=== PATIENT | male | born 1970 | race Caucasian/White ===

== ENCOUNTER 2017-02-20 06:36 | Inpatient (IN) | payer BC ==
[~2017-02-20 06:36] MED LIST: Bisacodyl 5 MG Tab PO PRN; Cyclobenzaprine 10 MG Tab PO PRN; Ketorolac 15 MG/ML SDV IVPUSH PRN; Lactated Ringers 1,000 ML IV SCH; Lidocaine 1%/Sod Bicarbonate in NS 8.4% 1 ML Syringe IV PRN; Magnesium Hydroxide 400 MG/5 ML Susp 30 ML Cup PO PRN; Morphine 2 MG/ML Syringe IVPUSH PRN; Morphine 8 MG, EPINEPHrine 0.3 MG, Cefuroxime 750 MG, Ketorolac 30 MG, Sodium Chloride ... ONE; Naloxone 0.4 MG/ML SDV IVPUSH PRN; Ondansetron 4 MG/2 ML SDV IVPUSH PRN; Sennosides 8.6 MG Tab PO PRN; Sodium Chloride 0.9% 10 ML Syringe FLUSH PRN; diphenhydrAMINE 50 MG/ML SDV IVPUSH PRN
[2017-02-20] MEDS ORDERED: Bupivacaine 0.25% 30 ML SDV ONE (06:54)
[2017-02-20] MEDS ORDERED: Iodine/Sodium Iodide 2% Tincture 30 ML Bottle ONE (06:54)
[2017-02-20] MEDS ORDERED: ceFAZolin 1 GM Vial ONE ×2 (06:54→07:23)
[2017-02-20] MEDS ORDERED: Vancomycin 1 GM SDV ONE (06:54)
[2017-02-20] MEDS ORDERED: Ondansetron 4 MG/2 ML SDV ONE (07:23)
[2017-02-20] MEDS ORDERED: Midazolam 1 MG/ML 2 ML SDV ONE ×2 (07:24→08:55)
[2017-02-20] MEDS ORDERED: fentaNYL 100 MCG/2 ML SDV ONE (07:24)
[2017-02-20] MEDS ORDERED: Propofol 200 MG/20 ML SDV ONE ×5 (07:24→10:37)
--- NOTE | 2017-02-20 07:41 | PCM.PREANE ---
Preanesthetic Assessment - Anesthesia/Transfusion/Family Hx Anesthesia History: Prior Anesthesia Without Reaction Family History of Anesthesia Reaction: No Transfusion History: Prior Transfusion Without Reaction - Review of Systems General: No Symptoms Pulmonary: Other (seasonal allergies, uses inhaler during that time) Cardiovascular: Other (HTN) Gastrointestinal: Other (S/p gastric bypass with complications) Neurological: Other (neruopathy in legs from knees down) Other: Reports: None - Physical Assessment NPO Status Date: 02/19/17 NPO Status Time: 21:00 Pulse: 64 O2 Sat by Pulse Oximetry: 96 Respiratory Rate: 16 Blood Pressure: 128/95 Temperature: 36.4 C Weight: 144 kg ASA Class: 2 Mental Status: Alert & Oriented x3 Airway Class: Mallampati = 2 Dentition: Reports: Normal Dentition Thyro-Mental Finger Breadths: 3 Mouth Opening Finger Breadths: 3 ROM/Head Extension: Full Lungs: Clear to Auscultation, Normal Respiratory Effort Cardiovascular: Regular Rate, Regular Rhythm, No Murmurs - Lab Values: Laboratory Last Values MRSA (PCR) Negative 01/31/17 12:20 - Allergies Allergies/Adverse Reactions: Allergies Allergy/AdvReac Type Severity Reaction Status Date / Time Penicillins Allergy Hives Verified 02/17/17 14:06 piperacillin [From Zosyn] Allergy Rash Verified 02/17/17 14:06 tazobactam [From Zosyn] Allergy Rash Verified 02/17/17 14:06 - Blood Blood Available: No Product(s) Available: None - Anesthesia Plan Pre-Op Medication Ordered: None - Acknowledgements Anesthesia Type Planned: Spinal Pt an Appropriate Candidate for the Planned Anesthesia: Yes Alternatives and Risks of Anesthesia Discussed w Pt/Guardian: Yes Pt/Guardian Understands and Agrees with Anesthesia Plan: Yes PreAnesthesia Questionnaire HEENT History: Reports: None Cardiovascular History: Reports: Hypertension Respiratory History: Reports: Other (See Below) Other Respiratory History: Tracheostomy from complications of gastric bypass, pneumonia Gastrointestinal History: Reports: None Genitourinary History: Reports: None Other Musculoskeletal History: Left knee pain Neurological History: Reports: Neuropathy, Peripheral Psychiatric History: Reports: PTSD, Other (See Below) Other Psychiatric History: Fatigue Endocrine/Metabolic History: Reports: Obesity/BMI 30+ Hematologic History: Reports: None Immunologic History: Reports: None Oncologic (Cancer) History: Reports: None Dermatologic History: Reports: None - Infectious Disease History Infectious Disease History: Reports: None - Past Surgical History Head Surgeries/Procedures: Reports: None HEENT Surgical History: Reports: None Cardiovascular Surgical History: Reports: None Respiratory Surgical History: Reports: None GI Surgical History: Reports: Other (See Below) Other GI Surgeries/Procedures: Gastric bypass with severe complications (8 years ago) Female Surgical History: Male Surgical History: Reports: None Endocrine Surgical History: Reports: None Neurological Surgical History: Reports: None Musculoskeletal Surgical History: Reports: None Oncologic Surgical History: Reports: None Dermatological Surgical History: Reports: None - SUBSTANCE USE Smoking Status *Q: Light Tobacco Smoker Tobacco Use Within Last Twelve Months: Snuff/Dip Second Hand Smoke Exposure: No Recreational Drug Use History: No - HOME MEDS Home Medications: Home Meds Albuterol [Ventolin HFA] 1 - 2 puff INH Q4H PRN 02/17/17 [History] Cyanocobalamin/FA/Pyridoxine [Folbic Tablet] 1 tab PO DAILY 02/17/17 [History] DULoxetine [Cymbalta] 60 mg PO DAILY 02/17/17 [History] Gabapentin [Neurontin] 600 mg PO TID 02/17/17 [History] Lansoprazole [Prevacid] 15 mg PO DAILY PRN 02/17/17 [History] Multivitamin [Daily Multiple Vitamin] 1 tab PO DAILY 02/17/17 [History] - CURRENT (IN HOUSE) MEDS Current Meds: Current Medications Bisacodyl (Dulcolax) 5 mg PO DAILY PRN PRN Reason: Constipation Cyclobenzaprine HCl (Flexeril) 10 mg PO TID PRN PRN Reason: Spasms Diphenhydramine HCl (Benadryl) 25 mg IVPUSH Q4H PRN PRN Reason: Nausea Docusate Sodium (Colace) 100 mg PO BID ISAAC Lactated Ringer's (Ringers, Lactated) 1,000 mls @ 125 mls/hr IV ASDIRECTED ISAAC Stop: 02/20/17 18:00 Ketorolac Tromethamine (Toradol) 15 mg IVPUSH Q6H PRN PRN Reason: Pain Lidocaine/Sodium Bicarbonate (Buffered Lidocaine 1% In Ns 8.4%) 0.25 ml IV ONETIME PRN PRN Reason: Prior to IV Start Stop: 02/20/17 18:00 Magnesium Hydroxide (Milk Of Magnesia) 30 ml PO BID PRN PRN Reason: Constipation Morphine Sulfate (Morphine) 2 mg IVPUSH Q2H PRN PRN Reason: Breakthrough Pain Naloxone HCl (Narcan) 0.1 mg IVPUSH Q5M PRN PRN Reason: Oversedation Ondansetron HCl (Zofran) 4 mg IVPUSH Q6H PRN PRN Reason: Nausea/Vomiting Oxycodone/Acetaminophen (Percocet 325-5 Mg) 1 - 2 tab PO Q4H PRN PRN Reason: Pain Rivaroxaban (Xarelto) 10 mg PO DAILY ISAAC Senna (Senna) 8.6 mg PO BID PRN PRN Reason: Constipation Sodium Chloride (Saline Flush) 10 ml FLUSH ASDIRECTED PRN PRN Reason: Keep Vein Open Discontinued Medications Bupivacaine HCl (Marcaine 0.25%) Confirm Administered Dose 30 ml .ROUTE .STK- MED ONE Stop: 02/20/17 06:55 Cefazolin Sodium (Ancef) Confirm Administered Dose 2 gm .ROUTE .STK-MED ONE Stop: 02/20/17 06:55 Cefazolin Sodium (Ancef) Confirm Administered Dose 3 gm .ROUTE .STK-MED ONE Stop: 02/20/17 07:24 Morphine Sulfate 8 mg/Epinephrine HCl 0.3 mg/Cefuroxime Sodium 750 mg/Ketorolac Tromethamine 30 mg/Sodium Chloride 27.9 ml 0 mg .XX ONETIME ONE Stop: 02/20/17 06:25 Fentanyl (Sublimaze) Confirm Administered Dose 100 mcg .ROUTE .STK-MED ONE Stop: 02/20/17 07:25 Iodine (Iodine 2% Mild Tincture) Confirm Administered Dose 30 ml .ROUTE .STK- MED ONE Stop: 02/20/17 06:55 Midazolam HCl (Versed 1 Mg/Ml) Confirm Administered Dose 2 mg .ROUTE .STK-MED ONE Stop: 02/20/17 07:25 Ondansetron HCl (Zofran) Confirm Administered Dose 4 mg .ROUTE .STK-MED ONE Stop: 02/20/17 07:24 Propofol (Diprivan 20 Ml) Confirm Administered Dose 600 mg .ROUTE .STK-MED ONE Stop: 02/20/17 07:25 Tranexamic Acid (Cyklokapron) Confirm Administered Dose 1,000 mg .ROUTE .STK- MED ONE Stop: 02/20/17 06:55 Vancomycin HCl (Vancomycin) Confirm Administered Dose 1 gm .ROUTE .STK-MED ONE Stop: 02/20/17 06:55
[2017-02-20] MEDS ORDERED: Morphine PF 1 MG/ML Amp ONE (07:48)
[2017-02-20] MEDS ORDERED: FLU Vacc QS 2017-18 (6mos UP)/PF 60 MCG/0.5 ML Syringe IM ONE (08:44)
[2017-02-20] MEDS ORDERED: fentaNYL 250 MCG/5 ML SDV ONE (08:54)
[2017-02-20] MEDS ORDERED: Ondansetron 4 MG/2 ML SDV IVPUSH PRN (09:25)
[2017-02-20] MEDS ORDERED: fentaNYL 100 MCG/2 ML SDV IVPUSH PRN (09:25)
[2017-02-20] MEDS ORDERED: diphenhydrAMINE 50 MG/ML SDV IVPUSH PRN (09:25)
[2017-02-20] MEDS ORDERED: HYDROmorphone 0.5 MG/0.5 ML Syringe IVPUSH PRN (09:25)
[2017-02-20] MEDS ORDERED: Lactated Ringers 1,000 ML ONE ×2 (10:24→10:50)
[2017-02-20] MEDS ORDERED: Dexamethasone 4 MG/ML 5 ML MDV ONE (10:25)
--- NOTE | 2017-02-20 11:05 | PCM.POSTAN ---
POST ANESTHESIA ASSESSMENT - MENTAL STATUS Mental Status: Alert, Oriented - VITAL SIGNS Pulse Rate: 80 SaO2: 95 Resp Rate: 16 Blood Pressure: 126/90 Temperature: 97.2 C - RESPIRATORY Respiratory Status: Respiratory Rate WNL, Airway Patent, O2 Saturation Stable, Supplemental Oxygen - CARDIOVASCULAR CV Status: Pulse Rate WNL, Blood Pressure Stable - GASTROINTESTINAL GI Status: No Symptoms - PAIN Pain Score: 0 - POST OP HYDRATION Hydration Status: Adequate & Stable
--- NOTE | 2017-02-20 11:44 | CR ---
Left knee: AP and lateral views of the left knee were obtained utilizing portable technique. Left knee prosthesis is seen. Components are aligned. Soft tissue air is noted from the surgical procedure. Underlying bony structures are intact. Impression: 1. Satisfactory radiographic appearance of recently placed knee prosthesis. Diagnostic code #2
[2017-02-20] MEDS ORDERED: Albuterol 6.7 GM Inhaler INH PRN (11:46)
[2017-02-20] MEDS ORDERED: Pantoprazole 40 MG Tab.CR PO PRN (11:46)
[2017-02-20] MEDS: ceFAZolin 1 GM in Premix Bag 1 BAG IV SCH (16:39)
[2017-02-20] MEDS: ceFAZolin 2 GM in Premix Bag 1 BAG IV SCH (17:09)
--- NOTE | 2017-02-20 18:42 | PCM.CONS ---
H&P History of Present Illness - General Date of Service: 02/20/17 Admit Problem/Dx: Admission Diagnosis/Problem Admission Diagnosis/Problem Osteoarthritis of knee Source of Information: Patient, Old Records History Limitations: Reports: No Limitations - History of Present Illness Initial Comments - Free Text/Narative: Cole is a 46-year-old male seen this afternoon, status post left TKA with Dr. Weir. Thus far he is doing very well. He states he has minimal to no complaints of knee pain. He has been up ambulatory twice once around the entire loop of the hallways. Did very well without according to his report. Streeter is in place draining clear yellow urine. He has no complaints of nausea and is tolerating by mouth well. Past medical history significant for gastric bypass around 8 years ago with complications requiring him to have a stay at [facility] for what is reported at 8 months he went into renal failure and also had pulmonary emboli at that time and was intubated with tracheostomy for many months, hypertension, seasonal allergies, peripheral neuropathy from the knees down bilaterally, reports "light" smoker. Hospitalist service is consulted for postoperative medical management. Patient is full CODE STATUS. - Related Data Allergies/Adverse Reactions: Allergies Allergy/AdvReac Type Severity Reaction Status Date / Time Penicillins Allergy Hives Verified 02/17/17 14:06 piperacillin [From Zosyn] Allergy Rash Verified 02/17/17 14:06 tazobactam [From Zosyn] Allergy Rash Verified 02/17/17 14:06 Home Medications: Home Meds Albuterol [Ventolin HFA] 1 - 2 puff INH Q4H PRN 02/17/17 [History] Cyanocobalamin/FA/Pyridoxine [Folbic Tablet] 1 tab PO DAILY 02/17/17 [History] DULoxetine [Cymbalta] 60 mg PO DAILY 02/17/17 [History] Gabapentin [Neurontin] 600 mg PO TID 02/17/17 [History] Lansoprazole [Prevacid] 15 mg PO DAILY PRN 02/17/17 [History] Multivitamin [Daily Multiple Vitamin] 1 tab PO DAILY 02/17/17 [History] Past Medical History HEENT History: Reports: Other (See Below) Other HEENT History: glasses for reading Cardiovascular History: Reports: Hypertension Respiratory History: Reports: Asthma, Other (See Below) Other Respiratory History: Tracheostomy from complications of gastric bypass, pneumonia Gastrointestinal History: Reports: None, Other (See Below) Other Gastrointestinal History: slower bowels Genitourinary History: Reports: None Musculoskeletal History: Reports: None Other Musculoskeletal History: Left knee pain Neurological History: Reports: Neuropathy, Peripheral Psychiatric History: Reports: Addiction, PTSD, Other (See Below) Other Psychiatric History: recovering alcoholic Endocrine/Metabolic History: Reports: Obesity/BMI 30+ Hematologic History: Reports: Blood Transfusion(s) Immunologic History: Reports: None Oncologic (Cancer) History: Reports: None Dermatologic History: Reports: None - Infectious Disease History Infectious Disease History: Reports: None - Past Surgical History Head Surgeries/Procedures: Reports: None HEENT Surgical History: Reports: None Cardiovascular Surgical History: Reports: None Respiratory Surgical History: Reports: None GI Surgical History: Reports: Other (See Below) Other GI Surgeries/Procedures: Gastric bypass with severe complications (8 years ago) Male Surgical History: Reports: None Endocrine Surgical History: Reports: None Neurological Surgical History: Reports: None Musculoskeletal Surgical History: Reports: None Oncologic Surgical History: Reports: None Dermatological Surgical History: Reports: None Social & Family History - Family History Oncologic: Reports: Lymphoma - Tobacco Use Smoking Status *Q: Light Tobacco Smoker Years of Tobacco use: 10 Packs/Tins Daily: 1 Tobacco Use Comment: 1 can of chew lasts several weeks Second Hand Smoke Exposure: No - Caffeine Use Caffeine Use: Reports: Coffee, Soda - Recreational Drug Use Recreational Drug Use: No Drug Use in Last 12 Months: No H&P Review of Systems - Review of Systems: Review Of Systems: See Below General: Reports: No Symptoms HEENT: Reports: No Symptoms Pulmonary: Reports: No Symptoms Cardiovascular: Reports: No Symptoms Gastrointestinal: Reports: No Symptoms Genitourinary: Reports: No Symptoms, Other (streeter cath) Musculoskeletal: Reports: Leg Pain (minimal to none) Psychiatric: Reports: No Symptoms Neurological: Reports: No Symptoms Exam - Exam Exam: See Below - Vital Signs Vital Signs: Last Vital Signs Temp 97.2 F 02/20/17 12:28 Pulse 74 02/20/17 15:02 Resp 16 02/20/17 17:44 BP 122/75 02/20/17 15:02 Pulse Ox 96 02/20/17 17:44 Weight: 318 lb - Exam Quality Assessment: Supplemental Oxygen (1L/NC at time of exam), Urinary Catheter (clear yellow urine) General: Alert, Oriented, Cooperative HEENT: Conjunctiva Clear, Mucosa Moist & [place], Pupils Equal, PERRLA Neck: Supple Lungs: Clear to Auscultation, Normal Respiratory Effort Cardiovascular: Regular Rate, Regular Rhythm, Normal S1, Normal S2 GI/Abdominal Exam: Normal Bowel Sounds, Soft, Non-Tender (Male) Exam: Deferred Rectal (Males) Exam: Deferred Extremities: Normal Capillary Refill, Other (ice to lt knee, kevyn wrap present to lt leg) Peripheral Pulses: 2+: Dorsalis Pedis (L), Dorsalis Pedis (R) Skin: Warm, Dry Neuro Extensive - Mental Status: Alert, Oriented x3, Normal Mood/Affect, Normal Cognition, Memory Intact Psychiatric: Alert, Normal Affect, Normal Mood - Patient Data Lab Results Last 24 hrs: Laboratory Results - last 24 hr 02/20/17 Range/Units 07:27 Sodium 143 (136-145) mEq/L Potassium 4.1 (3.5-5.1) mEq/L Chloride 106 (98-107) mEq/L Carbon Dioxide 32 (21-32) mEq/L Anion Gap 9.1 (5-15) BUN 12 (7-18) mg/dL Creatinine 1.3 (0.7-1.3) mg/dL Est Cr Clr Drug Dosing 80.79 mL/min Estimated GFR (MDRD) 59 (>60) mL/min BUN/Creatinine Ratio 9.2 L (14-18) Glucose 112 H (74-106) mg/dL Calcium 9.2 (8.5-10.1) mg/dL Result Diagrams: 02/20/17 07:27 Consult PN Assessment/Plan POD#: 0 (1) S/P total knee arthroplasty SNOMED Code(s): 2673813001353, 8795324927222 Code(s): Z96.659 - PRESENCE OF UNSPECIFIED ARTIFICIAL KNEE JOINT Priority: High Current Visit: Yes Qualifiers: Laterality: left Qualified Code(s): Z96.652 - Presence of left artificial knee joint (2) Osteoarthritis SNOMED Code(s): 544259105 Code(s): M19.90 - UNSPECIFIED OSTEOARTHRITIS, UNSPECIFIED SITE Priority: High Current Visit: Yes Qualifiers: Osteoarthritis location: knee Osteoarthritis type: primary Laterality: left Qualified Code(s): M17.12 - Unilateral primary osteoarthritis, left knee (3) S/P gastric bypass SNOMED Code(s): 533360710, 053652857, 517781453 Code(s): Z98.84 - BARIATRIC SURGERY STATUS Priority: Medium Current Visit : Yes (4) Hx pulmonary embolism SNOMED Code(s): 351961872 Code(s): Z86.711 - PERSONAL HISTORY OF PULMONARY EMBOLISM Priority: Medium Current Visit: Yes (5) Peripheral neuropathy SNOMED Code(s): 041622866 Code(s): G62.9 - POLYNEUROPATHY, UNSPECIFIED Priority: Medium Current Visit: Yes Qualifiers: Peripheral neuropathy type: polyneuropathy, unspecified Qualified Code(s): G62.9 - Polyneuropathy, unspecified (6) HTN (hypertension) SNOMED Code(s): 05017189 Code(s): I10 - ESSENTIAL (PRIMARY) HYPERTENSION Priority: Medium Current Visit: Yes Qualifiers: Hypertension type: essential hypertension Qualified Code(s): I10 - Essential (primary) hypertension (7) Seasonal allergies SNOMED Code(s): 872915813 Code(s): J30.2 - OTHER SEASONAL ALLERGIC RHINITIS Priority: Medium Current Visit: No Qualifiers: Chronicity: unspecified Allergic rhinitis trigger: unspecified Qualified Code(s): J30.2 - Other seasonal allergic rhinitis (8) Tobacco use SNOMED Code(s): 484876893 Code(s): Z72.0 - TOBACCO USE Priority: Medium Current Visit: Yes Problem List Initiated/Reviewed/Updated: Yes Plan: I/P: S/P total left knee arthroplasty, POD # 0, Dr. Weir - Pain management and DVT prophylax--with Xarelto as patient with history of pulmonary emboli per Orth OT and - PT/OT - RT/IS - Hgb will follow with morning labs - Supplemental oxygen as needed for saturations less than 90%, wean as needed -Vital signs stable at this time. Patient doing very well Chronic conditions: History of gastric bypass with complications, pulmonary emboli, acute renal failure, intubation for many months Hypertension, continue home meds, stable Peripheral neuropathy, continue home meds Tobacco use disorder, cessation education Other: GI Prophylax- continue home PPI CM/SW for DC planning Patient is full Code status.
[2017-02-20] MEDS: Gabapentin 600 MG Tab PO SCH (21:31)
[2017-02-20] MEDS: Acetaminophen/oxyCODONE 325-5 MG Tab PO PRN (21:31)
[2017-02-20] MEDS: Docusate Sodium 100 MG Cap PO SCH (21:31)
[2017-02-21] MEDS: ceFAZolin 2 GM in Premix Bag 1 BAG IV SCH ×2 (01:25→14:02)
[2017-02-21] MEDS: ceFAZolin 1 GM in Premix Bag 1 BAG IV SCH ×2 (01:25→14:01)
[2017-02-21] MEDS ORDERED: Rivaroxaban 10 MG Tab PO SCH (09:00)
[2017-02-21] MEDS ORDERED: DULoxetine 30 MG Cap PO SCH (09:00)
[2017-02-21] MEDS: Acetaminophen/oxyCODONE 325-5 MG Tab PO PRN (12:14)
[2017-02-21] MEDS: Docusate Sodium 100 MG Cap PO SCH (14:02)
[2017-02-21] MEDS: Gabapentin 600 MG Tab PO SCH ×2 (14:02→15:04)
--- NOTE | 2017-02-21 16:38 | PCM.SURGPN ---
- General Info Date of Service: 02/21/17 POD#: 1 Functional Status: Reports: Pain Controlled, Tolerating Diet, Ambulating, Urinating, Incentive Spirometry - Review of Systems Musculoskeletal: Reports: Other (The pt has progressed well with P.T. and O.T.) - Patient Data Vitals - Most Recent: Last Vital Signs Temp 98.1 F 02/21/17 00:26 Pulse 72 02/21/17 00:26 Resp 16 02/21/17 02:00 BP 101/57 L 02/21/17 00:26 Pulse Ox 97 02/21/17 00:26 Weight - Most Recent: 318 lb I&O - Last 24 Hours: Intake & Output 02/20/17 02/21/17 02/21/17 22:59 06:59 14:59 Intake Total 1440 120 Output Total 550 Balance 890 120 Med Orders - Current: Current Medications Albuterol (Proventil Hfa) 0 gm INH Q4H PRN PRN Reason: Shortness of Breath Bisacodyl (Dulcolax) 5 mg PO DAILY PRN PRN Reason: Constipation Cyclobenzaprine HCl (Flexeril) 10 mg PO TID PRN PRN Reason: Spasms Diphenhydramine HCl (Benadryl) 25 mg IVPUSH Q4H PRN PRN Reason: Nausea Docusate Sodium (Colace) 100 mg PO BID COUNT INCLUDES THE [facility] Last Admin: 02/20/17 21:31 Dose: 100 mg Duloxetine HCl (Cymbalta) 60 mg PO DAILY COUNT INCLUDES THE [facility] Gabapentin (Neurontin) 600 mg PO TID COUNT INCLUDES THE [facility] Last Admin: 02/20/17 21:31 Dose: 600 mg Cefazolin Sodium/Dextrose 2 gm (/ Premix) 50 mls @ 100 mls/hr IV Q8H COUNT INCLUDES THE [facility] Stop: 02/21/17 09:29 Last Admin: 02/21/17 01:25 Dose: 100 mls/hr Cefazolin Sodium/Dextrose 1 gm (/ Premix) 50 mls @ 100 mls/hr IV Q8H COUNT INCLUDES THE [facility] Stop: 02/21/17 09:29 Last Admin: 02/21/17 01:25 Dose: 100 mls/hr Ketorolac Tromethamine (Toradol) 15 mg IVPUSH Q6H PRN PRN Reason: Pain Magnesium Hydroxide (Milk Of Magnesia) 30 ml PO BID PRN PRN Reason: Constipation Morphine Sulfate (Morphine) 2 mg IVPUSH Q2H PRN PRN Reason: Breakthrough Pain Last Admin: 02/20/17 10:08 Dose: 2 mg Naloxone HCl (Narcan) 0.1 mg IVPUSH Q5M PRN PRN Reason: Oversedation Ondansetron HCl (Zofran) 4 mg IVPUSH Q6H PRN PRN Reason: Nausea/Vomiting Oxycodone/Acetaminophen (Percocet 325-5 Mg) 1 - 2 tab PO Q4H PRN PRN Reason: Pain Last Admin: 02/21/17 12:14 Dose: 2 tab Pantoprazole Sodium (Protonix) 40 mg PO DAILY PRN PRN Reason: Indigestion Rivaroxaban (Xarelto) 10 mg PO DAILY [facility] Senna (Senna) 8.6 mg PO BID PRN PRN Reason: Constipation Sodium Chloride (Saline Flush) 10 ml FLUSH ASDIRECTED PRN PRN Reason: Keep Vein Open Discontinued Medications Bupivacaine HCl (Marcaine 0.25%) Confirm Administered Dose 30 ml .ROUTE .STK- MED ONE Stop: 02/20/17 06:55 Last Admin: 02/20/17 10:09 Dose: 30 ml Cefazolin Sodium (Ancef) Confirm Administered Dose 2 gm .ROUTE .STK-MED ONE Stop: 02/20/17 06:55 Last Admin: 02/20/17 10:05 Dose: 2 gm Cefazolin Sodium (Ancef) Confirm Administered Dose 3 gm .ROUTE .STK-MED ONE Stop: 02/20/17 07:24 Morphine Sulfate 8 mg/Epinephrine HCl 0.3 mg/Cefuroxime Sodium 750 mg/Ketorolac Tromethamine 30 mg/Sodium Chloride 27.9 ml 0 mg .XX ONETIME ONE Stop: 02/20/17 06:25 Dexamethasone (Dexamethasone) Confirm Administered Dose 20 mg .ROUTE .STK-MED ONE Stop: 02/20/17 10:26 Diphenhydramine HCl (Benadryl) 25 mg IVPUSH Q6H PRN PRN Reason: itching Stop: 02/20/17 18:00 Fentanyl (Sublimaze) Confirm Administered Dose 100 mcg .ROUTE .STK-MED ONE Stop: 02/20/17 07:25 Fentanyl (Sublimaze) Confirm Administered Dose 250 mcg .ROUTE .STK-MED ONE Stop: 02/20/17 08:55 Fentanyl (Sublimaze) 50 mcg IVPUSH Q5M PRN PRN Reason: pain Stop: 02/20/17 18:00 Hydromorphone HCl (Dilaudid) 0.5 mg IVPUSH Q15M PRN PRN Reason: Pain (severe 7-10) Stop: 02/20/17 18:00 Lactated Ringer's (Ringers, Lactated) 1,000 mls @ 125 mls/hr IV ASDIRECTED [facility] Stop: 02/20/17 18:00 Last Admin: 02/20/17 07:35 Dose: 125 mls/hr Lactated Ringer's (Ringers, Lactated) Confirm Administered Dose 1,000 mls @ as directed .ROUTE .STK-MED ONE Stop: 02/20/17 10:25 Lactated Ringer's (Ringers, Lactated) Confirm Administered Dose 1,000 mls @ as directed .ROUTE .STK-MED ONE Stop: 02/20/17 10:51 Influenza Virus Vaccine (Flulaval Quad [id number]) 60 mcg IM .ONCE ONE Stop: 02/20/17 08:45 Last Admin: 02/20/17 13:45 Dose: Not Given Iodine (Iodine 2% Mild Tincture) Confirm Administered Dose 30 ml .ROUTE .STK- MED ONE Stop: 02/20/17 06:55 Last Admin: 02/20/17 10:00 Dose: 18 ml Lidocaine/Sodium Bicarbonate (Buffered Lidocaine 1% In Ns 8.4%) 0.25 ml IV ONETIME PRN PRN Reason: Prior to IV Start Stop: 02/20/17 18:00 Last Admin: 02/20/17 07:34 Dose: 0.25 ml Midazolam HCl (Versed 1 Mg/Ml) Confirm Administered Dose 2 mg .ROUTE .STK-MED ONE Stop: 02/20/17 07:25 Midazolam HCl (Versed 1 Mg/Ml) Confirm Administered Dose 2 mg .ROUTE .STK-MED ONE Stop: 02/20/17 08:56 Morphine Sulfate (Duramorph Pf) Confirm Administered Dose 1 mg .ROUTE .STK-MED ONE Stop: 02/20/17 07:49 Ondansetron HCl (Zofran) Confirm Administered Dose 4 mg .ROUTE .STK-MED ONE Stop: 02/20/17 07:24 Ondansetron HCl (Zofran) 4 mg IVPUSH ONETIME PRN PRN Reason: Nausea/Vomiting Stop: 02/20/17 18:00 Propofol (Diprivan 20 Ml) Confirm Administered Dose 600 mg .ROUTE .STK-MED ONE Stop: 02/20/17 07:25 Propofol (Diprivan 20 Ml) Confirm Administered Dose 200 mg .ROUTE .STK-MED ONE Stop: 02/20/17 09:38 Propofol (Diprivan 20 Ml) Confirm Administered Dose 200 mg .ROUTE .STK-MED ONE Stop: 02/20/17 09:39 Propofol (Diprivan 20 Ml) Confirm Administered Dose 200 mg .ROUTE .STK-MED ONE Stop: 02/20/17 09:39 Propofol (Diprivan 20 Ml) Confirm Administered Dose 200 mg .ROUTE .STK-MED ONE Stop: 02/20/17 10:38 Tranexamic Acid (Cyklokapron) Confirm Administered Dose 1,000 mg .ROUTE .STK- MED ONE Stop: 02/20/17 06:55 Last Admin: 02/20/17 10:12 Dose: 1,000 mg Vancomycin HCl (Vancomycin) Confirm Administered Dose 1 gm .ROUTE .STK-MED ONE Stop: 02/20/17 06:55 Last Admin: 02/20/17 10:11 Dose: 1 gm - Exam Wound/Incisions: Dressing Dry and Intact General: Alert, Cooperative, No Acute Distress Lungs: Normal Respiratory Effort Extremities: Other (NVS intact. Suhas's negative for LLE.) - Problem List Review Problem List Initiated/Reviewed/Updated: Yes - My Orders Last 24 Hours: Active Orders 24 hr Category Date Time Status Communication Order [RC] ASDIRECTED Care 02/20/17 18:51 Active Ready for Discharge [RC] PER UNIT ROUTINE Care 02/21/17 12:39 Active CBC W/O DIFF,HEMOGRAM [HEME] AM Lab 02/21/17 05:11 Ordered COMPREHENSIVE METABOLIC PN,CMP [CHEM] AM Lab 02/21/17 05:11 Ordered DULoxetine [Cymbalta] Med 02/21/17 09:00 Active 60 mg PO DAILY Docusate Sodium [Colace] Med 02/20/17 21:00 Active 100 mg PO BID Gabapentin [Neurontin] Med 02/20/17 21:00 Active 600 mg PO TID Rivaroxaban [Xarelto] Med 02/21/17 09:00 Pending 10 mg PO DAILY ceFAZolin [Ancef] 1 gm Med 02/20/17 17:00 Active Premix Bag 1 bag IV Q8H ceFAZolin [Ancef] 2 gm Med 02/20/17 17:00 Active Premix Bag 1 bag IV Q8H Pulse Oximetry Continuous Monitoring [OM.PC] Routine Oth 02/20/17 18:50 Active Medication Orders Albuterol (Proventil Hfa) 0 gm INH Q4H PRN PRN Reason: Shortness of Breath Bisacodyl (Dulcolax) 5 mg PO DAILY PRN PRN Reason: Constipation Cyclobenzaprine HCl (Flexeril) 10 mg PO TID PRN PRN Reason: Spasms Diphenhydramine HCl (Benadryl) 25 mg IVPUSH Q4H PRN PRN Reason: Nausea Docusate Sodium (Colace) 100 mg PO BID COUNT INCLUDES THE [facility] Last Admin: 02/20/17 21:31 Dose: 100 mg Duloxetine HCl (Cymbalta) 60 mg PO DAILY COUNT INCLUDES [facility] Gabapentin (Neurontin) 600 mg PO TID COUNT INCLUDES THE [facility] Last Admin: 02/20/17 21:31 Dose: 600 mg Cefazolin Sodium/Dextrose 2 gm (/ Premix) 50 mls @ 100 mls/hr IV Q8H COUNT INCLUDES THE [facility] Stop: 02/21/17 09:29 Last Admin: 02/21/17 01:25 Dose: 100 mls/hr Infusion: 02/20/17 17:39 Dose: 100 mls/hr Admin: 02/20/17 17:09 Dose: 100 mls/hr Cefazolin Sodium/Dextrose 1 gm (/ Premix) 50 mls @ 100 mls/hr IV Q8H COUNT INCLUDES THE [facility] Stop: 02/21/17 09:29 Last Admin: 02/21/17 01:25 Dose: 100 mls/hr Infusion: 02/20/17 17:09 Dose: 100 mls/hr Admin: 02/20/17 16:39 Dose: 100 mls/hr Ketorolac Tromethamine (Toradol) 15 mg IVPUSH Q6H PRN PRN Reason: Pain Magnesium Hydroxide (Milk Of Magnesia) 30 ml PO BID PRN PRN Reason: Constipation Morphine Sulfate (Morphine) 2 mg IVPUSH Q2H PRN PRN Reason: Breakthrough Pain Last Admin: 02/20/17 10:08 Dose: 2 mg Naloxone HCl (Narcan) 0.1 mg IVPUSH Q5M PRN PRN Reason: Oversedation Ondansetron HCl (Zofran) 4 mg IVPUSH Q6H PRN PRN Reason: Nausea/Vomiting Oxycodone/Acetaminophen (Percocet 325-5 Mg) 1 - 2 tab PO Q4H PRN PRN Reason: Pain Last Admin: 02/21/17 12:14 Dose: 2 tab Admin: 02/20/17 21:31 Dose: 2 tab Pantoprazole Sodium (Protonix) 40 mg PO DAILY PRN PRN Reason: Indigestion Rivaroxaban (Xarelto) 10 mg PO DAILY [facility] Senna (Senna) 8.6 mg PO BID PRN PRN Reason: Constipation Sodium Chloride (Saline Flush) 10 ml FLUSH ASDIRECTED PRN PRN Reason: Keep Vein Open - Assessment Assessment (Free Text/Narrative):: POD#1 - left TKA - Plan Plan (Free Text/Narrative):: 1. Xarelto, TEDs, frequent mobility. 2. Outpatient P.T. 3. F[facility]U [facility] next week. The pt's case was discussed with Dr. Weir.
--- NOTE | 2017-02-21 16:38 | PCM48HPAN ---
Post Anesthesia Note - EVALUATION WITHIN 48HRS OF ANESTHETIC Vital Signs in Normal Range: Yes Patient Participated in Evaluation: Yes Respiratory Function Stable: Yes Airway Patent: Yes Cardiovascular Function Stable: Yes Hydration Status Stable: Yes Pain Control Satisfactory: Yes Nausea and Vomiting Control Satisfactory: Yes Mental Status Recovered: Yes
--- NOTE | 2017-02-22 08:52 | PN ---
DATE OF SERVICE: 02/21/2017 CONSULTATION/PROGRESS NOTE CHIEF COMPLAINT: Status post right total knee arthroplasty. SUBJECTIVE: Cole is sitting up in the chair, legs elevated. He is pleasant, alert, and talkative this morning. Pain is under fair control. He has been up and ambulatory several times with therapy and nursing overnight and this morning. Tolerating meals. No nausea or vomiting, he is voiding without difficulty after Perez catheter is removed. He is ready and anxious for discharge to home today. OBJECTIVE: VITAL SIGNS: Stable. He is afebrile. HEENT: Unremarkable. HEART: Regular rate and rhythm. LUNGS: Clear to auscultation. ABDOMEN: Round, soft, and nontender. EXTREMITIES: With Chris wrap in place, present to surgical knee. Thigh is soft. Pedal pulses are 2+ and equal bilaterally. He does have peripheral neuropathy, so sensation is quite decreased to the feet, but equal bilaterally. LABORATORY DATA: CBC with a hemoglobin of 12.9, other indices are within normal limits. Comprehensive metabolic panel, creatinine 1.22 as he does have a history of renal failure status post gastric bypass surgery. So this is stable and doing very well. IMPRESSION: 1. Status post right total knee arthroplasty, with Dr. Weir, postoperative day #1, doing well. 2. Hypertension, well controlled. 3. Status post gastric bypass surgery 8 years ago with significant complications including acute renal failure. 4. Pulmonary embolism and intubation for many months. 5. Peripheral neuropathy, stable. PLAN: The patient is doing very well. Vital signs are stable. Laboratories are stable. He is up and ambulatory, and eating without nausea, and voiding without difficulty. From a hospitalist standpoint, patient is okay for discharge to home today. MMODAL /[id number]
--- NOTE | 2017-02-23 06:44 | PCM.DCSUM1 ---
Discharge Summary - Hospital Course Brief History: Cole is a 46 yo male who underwent left TKA with Dr. Weir on . The procedure was completed under spinal anesthesia with MAC. The pt tolerated the procedure well and was admitted to the Medical-Surgical Unit. The pt received Ancef lin-operatively and no adverse effects from medication were noted. The pt participated in P.T. and O.T. and progressed well. He was allowed to WBAT and used a FWW for mobility. The pt's surgical wound was dressed with a Mepilex dressing and remained clean and dry. On POD#1, the pt was started on Xarelto 10mg PO daily for VTE prophylaxis. The pt used TEDs and SCDs also. On POD#1, the pt's hemoglobin was 12.9. Medial management was provided by the Hospitalist service and the pt's hospital course was uneventful. On POD#2, the pt was deemed appropriate for discharge to home with his family. - Discharge Data Discharge Date: 02/21/17 Discharge Disposition: Home, Self-Care 01 Condition: Good - Patient Summary/Data Consults: Consultations 02/20/ 06:25 Consult to Physician [CONS] Routine OT Evaluation and Treatment [CONS] Routine PT Evaluation and Treatment [CONS] Routine - Patient Instructions Diet: Usual Diet as Tolerated Activity: Apply Ice, As Tolerated, Elevate Extremity, Full Weight Bearing Driving: Do Not Drive Showering/Bathing: May Shower Wound/Incision Care: Keep Operative Site/Wound Site Clean and Dry, Do NOT Change Dressing Notify Provider of: Fever, Increased Pain, Swelling and Redness, Drainage, Nausea and/or Vomiting Other/Special Instructions: Please get up and moving around every hour while awake. Have help with mobility as needed. Frequent mobility helps to prevent blood clots. Take the Xarelto blood thinner medication daily. Please wear the FRANTZ hose during the day and you may remove them at night. Please schedule for P.T. Complete the P.T. exercises and stretches that were instructed in the Hospital. Please use the pain medication and muscle relaxant as needed. The medication may cause drowsiness and/or constipation. You could use a stool softener like docusate sodium or Colace 100mg twice daily and/or a laxative like Miralax daily for constipation. Contact your primary care provider for further instructions if you are constipated. Please schedule an appointment with your primary care provider for 'routine post-op care'. Use the incentive spirometer often. Please place ice to the knee often. Please elevate the limb to decrease swelling. Keep the Mepilex dressing in place until follow-up. Please call [phone] with questions or concerns. - Discharge Plan Prescriptions/Med Rec: Acetaminophen/oxyCODONE [Percocet 325-5 MG] 1 - 2 tab PO Q4H PRN #60 tablet PRN Reason: Pain Cyclobenzaprine [Flexeril] 10 mg PO TID PRN #40 tablet PRN Reason: Spasms Rivaroxaban [Xarelto] 10 mg PO DAILY #40 tablet Home Medications: Home Meds Albuterol [Ventolin HFA] 1 - 2 puff INH Q4H PRN 02/17/17 [History] Cyanocobalamin/FA/Pyridoxine [Folbic] 1 tab PO DAILY 02/17/17 [History] DULoxetine [Cymbalta] 60 mg PO DAILY 02/17/17 [History] Gabapentin [Neurontin] 600 mg PO TID 02/17/17 [History] Lansoprazole [Prevacid] 15 mg PO DAILY PRN 02/17/17 [History] Multivitamin [Daily Multiple Vitamin] 1 tab PO DAILY 02/17/17 [History] Acetaminophen/oxyCODONE [Percocet 325-5 MG] 1 - 2 tab PO Q4H PRN #60 tablet [Rx] Cyclobenzaprine [Flexeril] 10 mg PO TID PRN #40 tablet 02/21/17 [Rx] Docusate Sodium [Colace] 100 mg PO BID cap 02/21/17 [Rx] Rivaroxaban [Xarelto] 10 mg PO DAILY #40 tablet 02/21/17 [Rx] Patient Handouts: Total Knee Replacement, Care After, [id number], Total Knee Replacement, [id number] Referrals: Dinah Rodríguez PA-C [[employer]] - (1. Follow-up with Dinah Rodríguez PA-C on March 01, 2017 at 12:00 pm (noon). 2. Follow-up with Dinah Rodríguez PA-C on March 08, 2017 at 2:00pm.) - Patient Data Vitals - Most Recent: Last Vital Signs Temp 98.7 F 02/21/17 12:04 Pulse 89 02/21/17 12:04 Resp 18 02/21/17 12:04 BP 110/56 L 02/21/17 12:04 Pulse Ox 90 L 02/21/17 12:04 Weight - Most Recent: 318 lb Med Orders - Current: Current Medications Discontinued Medications Albuterol (Proventil Hfa) 0 gm INH Q4H PRN PRN Reason: Shortness of Breath Bisacodyl (Dulcolax) 5 mg PO DAILY PRN PRN Reason: Constipation Bupivacaine HCl (Marcaine 0.25%) Confirm Administered Dose 30 ml .ROUTE .STK- MED ONE Stop: 02/20/17 06:55 Last Admin: 02/20/17 10:09 Dose: 30 ml Cefazolin Sodium (Ancef) Confirm Administered Dose 2 gm .ROUTE .STK-MED ONE Stop: 02/20/17 06:55 Last Admin: 02/20/17 10:05 Dose: 2 gm Cefazolin Sodium (Ancef) Confirm Administered Dose 3 gm .ROUTE .STK-MED ONE Stop: 02/20/17 07:24 Morphine Sulfate 8 mg/Epinephrine HCl 0.3 mg/Cefuroxime Sodium 750 mg/Ketorolac Tromethamine 30 mg/Sodium Chloride 27.9 ml 0 mg .XX ONETIME ONE Stop: 02/20/17 06:25 Cyclobenzaprine HCl (Flexeril) 10 mg PO TID PRN PRN Reason: Spasms Dexamethasone (Dexamethasone) Confirm Administered Dose 20 mg .ROUTE .STK-MED ONE Stop: 02/20/17 10:26 Diphenhydramine HCl (Benadryl) 25 mg IVPUSH Q4H PRN PRN Reason: Nausea Diphenhydramine HCl (Benadryl) 25 mg IVPUSH Q6H PRN PRN Reason: itching Stop: 02/20/17 18:00 Docusate Sodium (Colace) 100 mg PO BID [facility] Last Admin: 02/21/17 14:02 Dose: Not Given Duloxetine HCl (Cymbalta) 60 mg PO DAILY [facility] Last Admin: 02/21/17 14:02 Dose: Not Given Fentanyl (Sublimaze) Confirm Administered Dose 100 mcg .ROUTE .STK-MED ONE Stop: 02/20/17 07:25 Fentanyl (Sublimaze) Confirm Administered Dose 250 mcg .ROUTE .STK-MED ONE Stop: 02/20/17 08:55 Fentanyl (Sublimaze) 50 mcg IVPUSH Q5M PRN PRN Reason: pain Stop: 02/20/17 18:00 Gabapentin (Neurontin) 600 mg PO TID [facility] Last Admin: 02/21/17 15:04 Dose: 600 mg Hydromorphone HCl (Dilaudid) 0.5 mg IVPUSH Q15M PRN PRN Reason: Pain (severe 7-10) Stop: 02/20/17 18:00 Lactated Ringer's (Ringers, Lactated) 1,000 mls @ 125 mls/hr IV ASDIRECTED [facility] Stop: 02/20/17 18:00 Last Admin: 02/20/17 07:35 Dose: 125 mls/hr Lactated Ringer's (Ringers, Lactated) Confirm Administered Dose 1,000 mls @ as directed .ROUTE .STK-MED ONE Stop: 02/20/17 10:25 Lactated Ringer's (Ringers, Lactated) Confirm Administered Dose 1,000 mls @ as directed .ROUTE .STK-MED ONE Stop: 02/20/17 10:51 Cefazolin Sodium/Dextrose 2 gm (/ Premix) 50 mls @ 100 mls/hr IV Q8H [facility] Stop: 02/21/17 09:29 Last Admin: 02/21/17 14:02 Dose: Not Given Cefazolin Sodium/Dextrose 1 gm (/ Premix) 50 mls @ 100 mls/hr IV Q8H [facility] Stop: 02/21/17 09:29 Last Admin: 02/21/17 14:01 Dose: Not Given Influenza Virus Vaccine (Flulaval Quad [id number]) 60 mcg IM .ONCE ONE Stop: 02/20/17 08:45 Last Admin: 02/20/17 13:45 Dose: Not Given Iodine (Iodine 2% Mild Tincture) Confirm Administered Dose 30 ml .ROUTE .STK- MED ONE Stop: 02/20/17 06:55 Last Admin: 02/20/17 10:00 Dose: 18 ml Ketorolac Tromethamine (Toradol) 15 mg IVPUSH Q6H PRN PRN Reason: Pain Last Admin: 02/21/17 15:26 Dose: 15 mg Lidocaine/Sodium Bicarbonate (Buffered Lidocaine 1% In Ns 8.4%) 0.25 ml IV ONETIME PRN PRN Reason: Prior to IV Start Stop: 02/20/17 18:00 Last Admin: 02/20/17 07:34 Dose: 0.25 ml Magnesium Hydroxide (Milk Of Magnesia) 30 ml PO BID PRN PRN Reason: Constipation Midazolam HCl (Versed 1 Mg/Ml) Confirm Administered Dose 2 mg .ROUTE .STK-MED ONE Stop: 02/20/17 07:25 Midazolam HCl (Versed 1 Mg/Ml) Confirm Administered Dose 2 mg .ROUTE .STK-MED ONE Stop: 02/20/17 08:56 Morphine Sulfate (Morphine) 2 mg IVPUSH Q2H PRN PRN Reason: Breakthrough Pain Last Admin: 02/20/17 10:08 Dose: 2 mg Morphine Sulfate (Duramorph Pf) Confirm Administered Dose 1 mg .ROUTE .STK-MED ONE Stop: 02/20/17 07:49 Naloxone HCl (Narcan) 0.1 mg IVPUSH Q5M PRN PRN Reason: Oversedation Ondansetron HCl (Zofran) 4 mg IVPUSH Q6H PRN PRN Reason: Nausea/Vomiting Ondansetron HCl (Zofran) Confirm Administered Dose 4 mg .ROUTE .STK-MED ONE Stop: 02/20/17 07:24 Ondansetron HCl (Zofran) 4 mg IVPUSH ONETIME PRN PRN Reason: Nausea/Vomiting Stop: 02/20/17 18:00 Oxycodone/Acetaminophen (Percocet 325-5 Mg) 1 - 2 tab PO Q4H PRN PRN Reason: Pain Last Admin: 02/21/17 12:14 Dose: 2 tab Pantoprazole Sodium (Protonix) 40 mg PO DAILY PRN PRN Reason: Indigestion Propofol (Diprivan 20 Ml) Confirm Administered Dose 600 mg .ROUTE .STK-MED ONE Stop: 02/20/17 07:25 Propofol (Diprivan 20 Ml) Confirm Administered Dose 200 mg .ROUTE .STK-MED ONE Stop: 02/20/17 09:38 Propofol (Diprivan 20 Ml) Confirm Administered Dose 200 mg .ROUTE .STK-MED ONE Stop: 02/20/17 09:39 Propofol (Diprivan 20 Ml) Confirm Administered Dose 200 mg .ROUTE .STK-MED ONE Stop: 02/20/17 09:39 Propofol (Diprivan 20 Ml) Confirm Administered Dose 200 mg .ROUTE .STK-MED ONE Stop: 02/20/17 10:38 Rivaroxaban (Xarelto) 10 mg PO DAILY [facility] Last Admin: 02/21/17 15:04 Dose: 10 mg Senna (Senna) 8.6 mg PO BID PRN PRN Reason: Constipation Sodium Chloride (Saline Flush) 10 ml FLUSH ASDIRECTED PRN PRN Reason: Keep Vein Open Tranexamic Acid (Cyklokapron) Confirm Administered Dose 1,000 mg .ROUTE .STK- MED ONE Stop: 02/20/17 06:55 Last Admin: 02/20/17 10:12 Dose: 1,000 mg Vancomycin HCl (Vancomycin) Confirm Administered Dose 1 gm .ROUTE .STK-MED ONE Stop: 02/20/17 06:55 Last Admin: 02/20/17 10:11 Dose: 1 gm *Q Meaningful Use (DIS) - VTE *Q VTE Criteria *Q: - Stroke *Q Stroke Criteria *Q: - AMI *Q AMI Criteria *Q:
--- NOTE | 2017-02-23 11:58 | PCM.OPNOTE ---
- General Post-Op/Procedure Note Date of Surgery/Procedure: 02/20/17 Operative Procedure(s): left total knee arthroplasty Pre Op Diagnosis: left knee osteoarthrosis Post-Op Diagnosis: Same Anesthesia Technique: Local, MAC, Spinal Primary Surgeon: Manny Weir Anesthesia Provider: Margi Snell Inside Plant Supervisor: Dinah Rodríguez Inside Plant Supervisor: Nuzhat Simmons EBMarco in mLs: 700 Complications: None Condition: Good
--- NOTE | 2017-02-23 13:37 | OR ---
DATE OF OPERATION: 02/20/2017 SURGEON: Manny Weir MD OPERATION PERFORMED: Left total knee arthroplasty. PREOPERATIVE DIAGNOSIS: Left knee osteoarthrosis. POSTOPERATIVE DIAGNOSIS: Left knee osteoarthrosis. ANESTHESIA: Local MAC with spinal. ANESTHESIA PROVIDER: Margi Snell. ASSISTANTS: Dinah Rodríguez PA-C, and Nuzhat Simmons LPN. ESTIMATED BLOOD LOSS: 700 mL. COMPLICATIONS: None. CONDITION: Stable. IMPLANTS: 1. Brighton size 7 press-fit PS femur. 2. Sourav size 6 press-fit tibial baseplate. 3. Sourav size 6 9-mm PS X3 polyethylene. 4. Brighton size 32 x 10 mm asymmetric press-fit patella. DESCRIPTION OF PROCEDURE: The patient was identified in the preop holding area. Proper site was marked and identified by the surgeon. The patient was taken back to the operating theater. After adequate anesthesia, the patient's left lower extremity had a nonsterile tourniquet applied and it was then sterilely prepped and draped in the usual sterile fashion. OR timeout was performed. The patient received 2 grams IV Ancef. At this time, left lower extremity was exsanguinated. Tourniquet was insufflated to 300 mmHg. Standard medial parapatellar incision was made. Medial parapatellar arthrotomy was created. Deep fibers of the MCL were raised and anterior fat pad was resected. At this time, attention was turned to the patella. Patella measured a 24, it was resected to a 14 for a 32 x 10 mm patella. Drill holes were then drilled and found to be in adequate position. The drill was then drilled in the distal femur and the intramedullary distal femoral cutting guide was then placed. 10 mm was resected off the distal femur and was found to be an adequate resection. Sizing guide was placed. It was found to be a size 7 press-fit PS femur that was shown on the implant record at the beginning of this dictation. The drill holes were drilled for the epicondylar axis using Whitesides line and epicondyles as reference. At this time, the 4-in-1 cutting block was placed. An anterior posterior and anterior and posterior chamfer cuts were then completed. The correct size box cut was then placed and the box cut was completed and found to be an adequate resection. Attention was turned to the tibia. The posterior medial lateral retractors were placed. The extramedullary tibial guide was placed. It was placed in the old footprint of the ACL. It was aligned with the center of the ankle and 0 degrees of slope, 9 mm was then resected off the unaffected lateral side. There was found to be an acceptable reduction. At this time, posterior osteophytes were removed along with medial and lateral meniscus. A trial implant was placed with a correct sized tibia that was mentioned at the beginning of the dictation. A size 6 9-mm PS X3 polyethylene was then placed. The patient's knee was brought through range of motion. The patella was tracking centrally and was stable to varus and valgus stress. Alignment was found to be roughly at 0 degrees. The tibia was stamped and drilled in proper rotation. The universal tibial base plate was impacted into place. Next, the size 7 press-fit PS femur was impacted into place and the size 6 9-mm PS X3 polyethylene was placed. The patient's knee was brought into full extension. The patella was then press-fit in place at this time. Tourniquet was deflated. One liter dilute Betadine solution was irrigated through the knee along with 3 L of pulse lavage irrigation with Ancef. Periarticular injection was then completed. The patient's knee was brought through a range of motion. Knee was found to be stable to varus valgus stress, the patella was tracking centrally with full range of motion. At this time, a #2 barbed suture was used for closure of the medial parapatellar arthrotomy. Topical tranexamic acid was placed. 2-0 Vicryl was used subcutaneously, a running 3-0 Monocryl was used subcuticularly. The patient tolerated the procedure well and was sent to the PACU in stable condition. MMODAL /[id number] LINA
== END 2017-02-21 15:23 | disposition home or self-care (01) | DRG 302 ==
LOC: JD.MS 06:36
PROVIDERS: ADMIT Orthopaedic Surgery; ATTEND Orthopaedic Surgery
PROC: 0SRD0J9 Replacement of Left Knee Joint with Synthetic Substitute, Cemented, Open Approach (ICD-10-PCS; principal; 2017-02-20)
DX: M17.12 Unilateral primary osteoarthritis, left knee (principal); E66.9 Obesity, unspecified; G62.9 Polyneuropathy, unspecified; I10 Essential (primary) hypertension; F17.220 Nicotine dependence, chewing tobacco, uncomplicated; Z88.0 Allergy status to penicillin; J45.909 Unspecified asthma, uncomplicated; Z86.711 Personal history of pulmonary embolism; J30.2 Other seasonal allergic rhinitis; Z68.41 Body mass index [BMI] 40.0-44.9, adult
CPT/HCPCS: 01402; 36415; 73560-26-LT; 73560-LT; 80048; 80053; 85027; 87641; 94762; 97110-GP; 97116-GP; 97162-GP; 97166-GO; 97535-GO; A9270-GY; C1776; J0690; J1100; J1885; J2250; J2270; J2274; J2405; J2704; J3010; J3370; J3490; J7120

== ENCOUNTER 2024-05-15 13:26 | Emergency (ER) | payer BC, OTHER ==
[2024-05-15] MEDS: Acetaminophen/oxyCODONE 325-5 MG Tab PO ONE (14:00)
[2024-05-15] MEDS: Diazepam 5 MG Tab PO ONE (14:01)
== END 2024-05-15 15:44 | disposition home or self-care (01) ==
LOC: JD.ED 13:26
DX: S76.911A Strain of unspecified muscles, fascia and tendons at thigh level, right thigh, initial encounter (principal); I10 Essential (primary) hypertension; J45.909 Unspecified asthma, uncomplicated; Z88.0 Allergy status to penicillin; Z88.8 Allergy status to other drugs, medicaments and biological substances; Z79.51 Long term (current) use of inhaled steroids; Z79.899 Other long term (current) drug therapy; Z79.01 Long term (current) use of anticoagulants; W00.0XXA Fall on same level due to ice and snow, initial encounter; Y93.89 Activity, other specified
CPT/HCPCS: 99283; A9270